=== PATIENT | female | born 1965 | race Caucasian/White ===

== ENCOUNTER → 2018-06-18 16:39 | Outpatient (CLI) | payer OTHER, SELFPAY ==
[2018-06-05 14:41] VITALS: BMI 26.4
--- NOTE | 2018-06-18 16:43 | RAD_ITS ---
STUDY: X-RAY - RIGHT KNEE REASON FOR EXAM: Female, 52 years old. Knee pain. TECHNIQUE: 2 view(s) of the knee. COMPARISON: None. FINDINGS: Mild periarticular spurring of the medial femoral condyle. There is also early medial and posterior periarticular spurring of the tibial plateau. Normal visualized proximal fibula. Normal patella. There is no demonstrated destructive osseous lesion or fracture. There is borderline to mild degenerative narrowing of the medial femorotibial compartment. Normal lateral femorotibial compartment. Normal patellofemoral articulation. Normal proximal tibiofibular articulation. There is vague soft tissue prominence in the suprapatellar region that may reflect a very small volume joint effusion. The soft tissue structures are unremarkable. RAD/Knee 1 or 2 Views IMPRESSION: Early degenerative change of the right knee, as described. Question of small suprapatellar joint effusion. Electronically Signed: Frank Marroquin MD at 17:26 EDT , Service support ,
== END ==
PROVIDERS: Family Provider Family Medicine; PCP Family Medicine; Referring Provider Internal Medicine; Visit Provider Internal Medicine
DX: M25.561 Pain in right knee (principal)
CPT/HCPCS: 73560

== ENCOUNTER → 2018-06-25 08:55 | Outpatient (REF) | payer OTHER, SELFPAY ==
[2018-06-25 08:48] VITALS: BMI 26.4
--- NOTE | 2018-06-25 08:56 | RAD_ITS ---
STUDY: X-RAY - RIGHT KNEE REASON FOR EXAM: Pain. TECHNIQUE: 4 view(s) of the knee. COMPARISON: Radiographs 06/18/2018. FINDINGS: Normal visualized distal femur. Normal visualized proximal tibia and fibula. Normal proximal tibiofibular articulation. There are very small marginal osteophytes and mild joint space narrowing of the medial femorotibial compartment. Normal lateral femorotibial compartment. Normal patellofemoral articulation. There is a small joint effusion. RAD/Knee 4 or More Views IMPRESSION: Mild arthrosis of the medial femorotibial compartment. Small joint effusion. Electronically Signed: Danny Vo MD at 14:28 EDT Tel , Service support ,
== END ==
LOC: HPRAD 08:55
PROVIDERS: Family Provider Family Medicine; PCP Family Medicine; Referring Provider Orthopaedic Surgery; Visit Provider Orthopaedic Surgery
DX: M25.561 Pain in right knee (principal)
CPT/HCPCS: 73564

== ENCOUNTER → 2018-07-29 11:00 | Outpatient (CLI) | payer OTHER, SELFPAY ==
[2018-07-29 10:21] VITALS: BMI 26.4
[2018-08-04 10:48] LABS: HPV Reflexed? NOT INDICATED
== END ==
PROVIDERS: Family Provider Family Medicine; PCP Family Medicine; Visit Provider Family Medicine
DX: Z01.419 Encounter for gynecological examination (general) (routine) without abnormal findings (principal)
CPT/HCPCS: 88175; G0145

== ENCOUNTER 2021-03-28 16:09 | Outpatient (CLI) | payer BC, SELFPAY ==
[2021-04-02 16:07] LABS: HPV Reflexed? NOT INDICATED
== END 2021-03-28 23:59 | disposition short-term general hospital (02) ==
LOC: LABSPEC 16:10
PROVIDERS: PCP Family Medicine; Visit Provider Family Medicine
DX: Z01.419 Encounter for gynecological examination (general) (routine) without abnormal findings (principal)
CPT/HCPCS: 88175; G0145

== ENCOUNTER → 2022-02-04 | Outpatient (CLI) | payer BC, SELFPAY ==
[2022-02-04 12:06] LABS: Absolute Lymphocyte Count 1.39 X10^3/uL (0.83-4.51); Absolute Neutrophil Count 2.3 X10^3/uL (2.0-7.7); Basophil# 0.04 X10^3/uL; Basophil% 0.9 % (0-1); Eosinophil# 0.13 X10^3/uL; Hematocrit 43.9 % (37-47); Hemoglobin 14.1 g/dL (12.0-15.0); Lymphocyte # 1.39 X10^3/ul (0.83-4.51); Lymphocyte % 32.5 % (19-41); Mean Corp Hgb Conc 32.1 g/dL (32-36); Mean Corpuscular Hgb 31.3 pg (27.0-32.0); Mean Corpuscular Volume 97.6 fL (81-99); Mean Platelet Vol. 9.5 fl (6.2-12.0); Monocyte% 9.3 % (0-10); NRBC Flagged by Analyzer 0 % (0-5); Neutrophil % 53.8 % (47-70); Platelet Count 280 K/mm3 (150-450); RBC Distribution Width CV 12.5 % (11.6-14.6); RBC Distribution Width SD 45.2 fl (35.1-43.9); White Blood Count 4.3 K/mm3 (4.4-11.0)
[2022-02-04 12:21] LABS: ALB/GLOB Ratio 1.1 RATIO (0.9-2.4); AST(SGOT) 20 U/L (15-37); Alanine Aminotransfer ALT/SGPT 20 U/L (13-56); Albumin, Serum 3.7 g/dL (3.2-5.0); Alkaline Phosphatase 76 U/L (45-117); Anion Gap 7 (5-15); BUN 12 mg/dL (7-18); Calcium,Total 9.3 mg/dL (8.5-10.1); Chloride 106 mmol/L (98-107); Creatinine, Serum 0.75 mg/dL (0.55-1.02); EST Glomerular Filtration Rate 84 mL/min (>60); Est Glom Filt Rate - Afr Amer 102 mL/min (>60); Globulin 3.4 g/dL (2.2-4.2); Glucose 93 mg/dL (74-106); Potassium 4.3 mmol/L (3.5-5.1); Protein, Total 7.1 g/dL (6.4-8.2); Sodium Level 143 mmol/L (136-145)
== END | disposition home or self-care (01) ==
LOC: BIMLAB 08:34
PROVIDERS: PCP Family Medicine; Referring Provider Physician Assistant; Visit Provider Physician Assistant
DX: K92.1 Melena (principal)
CPT/HCPCS: 36415; 80053; 85025

== ENCOUNTER → 2022-02-08 | Outpatient (CLI) | payer BC, SELFPAY | END | disposition home or self-care (01) | PROVIDERS: PCP Family Medicine; Visit Provider Physician Assistant | DX: K92.1 Melena (principal) | CPT/HCPCS: 82274 ==

== ENCOUNTER 2022-03-20 09:06 | Day surgery (SDC) | payer BC, SELFPAY ==
[2022-03-20] VITALS (9 sets, daily range): BP systolic 67–116; BP diastolic 57–76; PULSE 48–69; RESP 14–18; TEMP 36.6–36.7; O2SAT 92–99; BMI 27.1
[2022-03-20] MEDS: Lactated Ringers 1,000 ML 15 ML IV (09:40)
--- NOTE | 2022-03-20 09:59 | HP.PCM_ITS ---
History and Physical Date of Admission: 03/20/22 Date of Service:? 02/19/22 MR#: [id number] Acct: [id number] Name:ANNMARIE ARROYO Rep #: [id number] : 1965 ? ? Provider: Dr. Ashanti Soriano MD Age/Sex:? 56/F ? ? Location: [facility] Status: Signed Intake Vital Signs ? 02/05/2208:12 02/20/2208:47 Height 5 ft 4 in 5 ft 4.5 in Weight: ? 169 lb 8 oz BMI ? 28.6 BP ?B 110/88 H Blood Pressure Location ? Rt brachial Position ? Sitting Respiration ? 17 Pulse ? 68 Pulse Source ? Monitor Temp ?B 98.1 F Temp Source ? Oral Pulse Oximetry (%) ? 97 Oxygen Delivery Method ? room air Intake Visit Reasons:?RECTAL BLEEDING Chief Complaint: blood in stool Recreation Clerk Required: No Is patient in pain?: No Allergies Penicillins Allergy (Severe, Verified 02/19/22 08:49) Rashsteroid Allergy (Severe, Uncoded 02/19/22 08:49) vertigo Medications calcium carbonate 500 mg calcium (1,250 mg) chewable tablet (Calci-Chew) 500 mg PO BID 07/01/17 [History Confirmed 02/19/22] cholecalciferol (vitamin D3) 50 mcg (2,000 unit) capsule 2,000 unit PO QDAY 07/01/17 [History Confirmed 02/19/22] vitamin E 200 unit capsule 200 unit PO QDAY 07/01/17 [History Confirmed 02/19/22] ibuprofen 600 mg tablet 600 mg PO TID PRN pain #30 tabs 06/05/18 [Rx Confirmed 02/19/22] levothyroxine 125 mcg tablet 125 mcg PO DAILY 06/05/18 [History Confirmed 02/19/22] biotin 5,000 mcg disintegrating tablet 10,000 mcg PO DAILY 03/28/21 [History Confirmed 02/19/22] magnesium 30 mg tablet 400 mg PO 02/04/22 [History Confirmed 02/19/22] PFSH Medical History?(Updated 02/19/22 @ 10:[address] Ashanti Soriano MD) Hepatitis B History of cancer History of colon polyps History of thyroid cancer Meniere disease Surgical History? History of cholecystectomy History of colonoscopy History of thyroidectomy Family History? Mother Arthritis Heart disease Social History? Smoking Status:? Never smoker alcohol intake:? never substance use type:? does not use what type of physical activity do you participate in:? none HPI HPI HPI: 56-year-old female presents due to bright red blood per rectum over the last 6 weeks.? Patient states that she does not have it every time she has a bowel movement but typically does have it when she has constipation.? Patient is not aware of having any hemorrhoids.? Patient states that the bleeding does turn the toilet bowl red.? Patient states she has bowel movements about every 2 days, depending on what she eats.? Patient states she drinks at least 25 ounces of water daily.? Patient is unsure how much fiber she gets in her diet.? Patient denies abdominal pain/nausea/vomiting/reflux.? Patient denies any family history of colon cancer.? Patient did have a colonoscopy greater than 5 years ago at that time patient states she had polyps. ROS General General: No weight change, appetite, fatigue, colon cancer, breast cancer or weakness HEENT HEENT: No difficulty swallowing, eye injury, eye surgery, swollen glands or hoarseness Endo Endocrine: Yes thyroid cancer; No thyroid disease, diabetes mellitus, Hair loss, heat intolerance or cold intolerance Skin Skin: No rash or changing moles Musc Musculoskeletal: No back problems, arthritis, rheumatoid arthritis, gout or joint pain Cardio Cardiovascular: No murmur, pacemaker, heart disease, atrial fibrillation, high blood pressure, heart attack, heart stent, palpitations, shortness of breat with exertion or chest pain Psych Psychiatric: No depression, anxiety or hearing voices Resp Respiratory: No shortness of breath, No sleep apnea, No cough, No COPD, No asthma, No emphysema and No wheezing Gastro Gastrointestinal: No abdominal pain, No nausea or vomiting, No diarrhea, No constipation, Yes blood in stool, No acid reflux, No hemorrhoids, No ulcers, No gallbladder problem and No black,tarry stools [place] Hematologic: No blood thinners, No blood disorders, No bleeding, No anemia and No blood clots Neuro Neurologic: No weakness Exam Const General: cooperative, healthy appearing and no acute distress [facility] Head: normal to inspection Resp Effort & Inspection: normal respiratory effort Cardio Rate: regular rate GI Inspection: non-distended Palpation: soft, no guarding and nontender Skin General: no rashes or lesions noted Neuro General: patient oriented x3 Extrem General: no clubbing, cyanosis or edema Psych Affect: normal affect Assessment and Plan Assessment and Plan (1) Bright red blood per rectum: ?Status:?Acute (2) History of colon polyps: ?Status:?Acute ? ? ? Orders: Orders Colonoscopy Today ? ? Plan I have discussed the above with the patient. I have offered the patient colonoscopy for evaluation. I have explained the risks/benefits of the procedure and described the procedure.? I have discussed the risks with the patient, including but not limited to:? infection, bleeding, perforation of the GI tract requiring emergency surgery, inability to complete the procedure, injury to any internal organs, complications of anesthesia, etc. - the patient understands and agrees to proceed. I have answered all the patient's questions to the patient's satisfaction and the patient has no further questions. The patient has been given instructions for the colon cleansing preparation.? 1 day MiraLAX Dulcolax split prep. Ashanti Soriano M.D. Pager: [phone] [facility] [address] [place] [address], [address] [place] [address] Office: [phone] Coding Level of Care Code Off vis,new,level 3 Diagnoses Bright red blood per rectum? K62.5 History of colon polyps? Z86.010 02/19/22 1009 <Electronically signed by Ashanti Soriano MD> Date Ashanti Soriano MD
--- NOTE | 2022-03-20 11:37 | OP.COLON_ITS ---
Patient Name: Lashell Guzman Procedure Date: 03/20/2022 11:03 AM Date of : 1965 Age: 56 Procedure: Colonoscopy Indications: Rectal bleeding Providers: Ashanti Soriano MD Medicines: Monitored Anesthesia Care Patient Profile: This is a 56 year old female. Last Colonoscopy: more than 5 years but less than 10 years. Complications: No immediate complications. Procedure: Pre-Anesthesia Assessment: - Prior to the procedure, a History and Physical was performed, and patient medications and allergies were reviewed. The patient's tolerance of previous anesthesia was also reviewed. The risks and benefits of the procedure and the sedation options and risks were discussed with the patient. All questions were answered, and informed consent was obtained. Prior Anticoagulants: The patient has taken no previous anticoagulant or antiplatelet agents. ASA Grade Assessment: Per anesthesia. After reviewing the risks and benefits, the patient was deemed in satisfactory condition to undergo the procedure. After I obtained informed consent, the scope was passed under direct vision. Throughout the procedure, the patient's blood pressure, pulse, and oxygen saturations were monitored continuously. The pediatric colonoscope was introduced through the anus and advanced to the cecum, identified by the appendiceal orifice, ileocecal valve and palpation. The colonoscopy was performed without difficulty. The patient tolerated the procedure well. The quality of the bowel preparation was good. Scope In: 11:10:14 AM Scope Withdrawal Time 0 hours 6 minutes 29 seconds Scope Out: 11:30:43 AM Total Procedure Duration Time 0 hours 20 minutes 29 seconds Findings: Hemorrhoids were found on perianal exam. Non-bleeding internal hemorrhoids were found. The hemorrhoids were Grade I (internal hemorrhoids that do not prolapse). A few small-mouthed diverticula were found in the sigmoid colon. The exam was otherwise without abnormality. Impression: - Hemorrhoids found on perianal exam. - Non-bleeding internal hemorrhoids. - Diverticulosis in the sigmoid colon. - The examination was otherwise normal. - No specimens collected. Recommendation: - Discharge patient to home. - High fiber diet. - Continue present medications. - Repeat colonoscopy in 10 years for screening purposes. Procedure Code(s): --- Professional --- 44521, Colonoscopy, flexible; diagnostic, including collection of specimen(s) by brushing or washing, when performed (separate procedure) Diagnosis Code(s): --- Professional --- K64.0, First degree hemorrhoids K62.5, Hemorrhage of anus and rectum K57.30, Diverticulosis of large intestine without perforation or abscess without bleeding CPT copyright 2017 [employer]. All rights reserved. The codes documented in this report are preliminary and upon semi truck driver review may be revised to meet current compliance requirements. MD Ashanti Wing MD 03/20/2022 11:37:00 AM This report has been signed electronically. Number of Addenda: 0 Note Initiated On: 03/20/2022 11:03 AM
--- NOTE | 2022-03-20 11:37 | OP.CCLET_ITS ---
03/20/2022 Regino León Re : Colonoscopy procedure for Lashell Guzman Dear Dr. León This procedure was performed on Sunday, March 20, 2022. My impressions and recommendations are as follows: Impressions : - Hemorrhoids found on perianal exam. - Non-bleeding internal hemorrhoids. - Diverticulosis in the sigmoid colon. - The examination was otherwise normal. - No specimens collected. Recommendations : - Discharge patient to home. - High fiber diet. - Continue present medications. - Repeat colonoscopy in 10 years for screening purposes. My findings are described in the full procedure note, which is enclosed. If I can be of further assistance, please feel free to contact me at Doctor phone number(s): , Work: . Sincerely, MD Ashanti Wing MD 03/20/2022 11:37:00 AM This report has been signed electronically.
== END 2022-03-20 12:42 | disposition home or self-care (01) ==
LOC: EN 09:10 → AC 09:10
PROVIDERS: PCP Family Medicine; Referring Provider Family Medicine; Visit Provider Surgery
PROC: 0DJD8ZZ Inspection of Lower Intestinal Tract, Via Natural or Artificial Opening Endoscopic (ICD-10-PCS; CPT 45378; principal; 2022-03-20 10:25)
DX: K57.30 Diverticulosis of large intestine without perforation or abscess without bleeding (principal); K64.0 First degree hemorrhoids; E07.9 Disorder of thyroid, unspecified; E78.00 Pure hypercholesterolemia, unspecified; Z86.010 Personal history of colon polyps; Z79.899 Other long term (current) drug therapy
CPT/HCPCS: 45378; J7120; J2405

== ENCOUNTER → 2023-10-17 | Outpatient (CLI) | payer OTHER, SELFPAY ==
--- NOTE | 2023-10-17 17:18 | RAD_ITS ---
INDICATION: pain EXAMINATION/TECHNIQUE: X-RAY - LEFT XR Knee Complete 4 Views or More 4 VIEWS COMPARISON: Right knee radiograph June 25, 2018 FINDINGS: SOFT TISSUES: No soft tissue swelling or gas. No radiopaque foreign body. BONES/JOINTS: No acute fracture or subluxation.. Trace suprapatellar effusion. Normal alignment. Preservation of the joint space. Minimal medial and patellofemoral compartment osteophyte formation.. No sclerotic or destructive changes observed. RAD/Knee 4 or More Views IMPRESSION: No acute osseous finding. Trace suprapatellar effusion. Minimal degenerative change for age.. Electronically Signed: Rosales Espinoza MD at 8:13 EDT ,
== END | disposition home or self-care (01) ==
LOC: MTRAD 17:18
PROVIDERS: PCP Family Medicine; Referring Provider Physician Assistant; Visit Provider Physician Assistant
DX: M25.562 Pain in left knee (principal)
CPT/HCPCS: 73564

== ENCOUNTER → 2023-11-12 | Outpatient (CLI) | payer OTHER, SELFPAY | END | disposition home or self-care (01) | LOC: LABSPEC 14:20 | PROVIDERS: PCP Family Medicine; Referring Provider Physician Assistant; Visit Provider Physician Assistant | DX: L72.11 Pilar cyst (principal) | CPT/HCPCS: 87070; 87077; 87186; 87205 ==